=== PATIENT | female | born 1990 | race Caucasian/White ===

== ENCOUNTER 2020-01-24 20:31 | Inpatient (IN) | payer OTHER ==
[2020-01-24] MEDS ORDERED: Water For Irrigation,Sterile 1,000 ML Container IRR PRN (20:58)
[2020-01-24] MEDS ORDERED: Misoprostol 200 MCG Tab PO PRN (20:58)
[2020-01-24] MEDS ORDERED: Nalbuphine 10 MG/1 ML Vial IVPUSH PRN (20:58)
[2020-01-24] MEDS ORDERED: Methylergonovine 0.2 MG/1 ML Amp IM PRN (20:58)
[2020-01-24] MEDS ORDERED: Carboprost Tromethamine 250 MCG/1 ML Amp IM PRN (20:58)
[2020-01-24] MEDS ORDERED: Tranexamic Acid 1,000 MG in Sodium Chloride 0.9% 100 ML IV PRN (20:58)
[2020-01-24] MEDS ORDERED: Sodium Chloride 0.9% 10 ML SDV IV PRN (20:58)
[2020-01-24] MEDS ORDERED: Sodium Chloride 0.9% 2.5 ML Syringe FLUSH PRN (20:58)
[2020-01-24] MEDS ORDERED: Lidocaine 1% 50 ML MDV INJECT PRN (20:58)
[2020-01-24] MEDS ORDERED: Sodium Chloride 0.9% 10 ML Syringe FLUSH PRN (20:58)
[2020-01-24] MEDS ORDERED: Butorphanol 1 MG/ML SDV IVPUSH PRN (20:58)
[2020-01-24] MEDS ORDERED: Oxytocin/0.9 % Sodium Chloride 30 UNIT/500 ML BAG IV SCH (21:00)
[2020-01-24] MEDS: Lactated Ringers 1,000 ML IV SCH ×2 (21:25→22:03)
[2020-01-24] MEDS ORDERED: fentaNYL 100 MCG/2 ML SDV ONE (21:43)
[2020-01-24] MEDS ORDERED: Ropivacaine HCl/PF 100 ML ONE (21:43)
[2020-01-24 21:54] LABS: BLOOD UREA NITROGEN,BUN 11 mg/dL (7.0-18.0); CARBON DIOXIDE,CO2 22.4 mmol/L (21.0-32.0); CHLORIDE,CL 101 mmol/L (98-107); GLUCOSE RANDOM 122 mg/dL (74-106); SODIUM,NA 137 mmol/L (136-145)
--- NOTE | 2020-01-24 22:02 | PCM.PREANE ---
Preanesthetic Assessment - Anesthesia/Transfusion/Family Hx Anesthesia History: No Prior Anesthesia Family History of Anesthesia Reaction: No - Physical Assessment NPO Status Date: 01/24/20 NPO Status Time: 18:00 Height: 1.63 m Weight: 79.379 kg ASA Class: 1 - Lab Values: Laboratory Last Values WBC 15.10 K/uL (4.0-11.0) H 01/24/20 21:15 RBC 3.92 M/uL (4.30-5.90) L 01/24/20 21:15 Hgb 12.5 g/dL (12.0-16.0) 01/24/20 21:15 Hct 36.9 % (36.0-46.0) 01/24/20 21:15 MCV 94.1 fL (80.0-98.0) 01/24/20 21:15 MCH 31.9 pg (27.0-32.0) 01/24/20 21:15 MCHC 33.9 g/dL (31.0-37.0) 01/24/20 21:15 RDW Std Deviation 43.3 fl (28.0-62.0) 01/24/20 21:15 RDW Coeff of Donovan 13 % (11.0-15.0) 01/24/20 21:15 Plt Count 258 K/uL (150-400) 01/24/20 21:15 MPV 10.60 fL (7.40-12.00) 01/24/20 21:15 Nucleated RBC % 0.0 /100WBC 01/24/20 21:15 Nucleated RBCs # 0 K/uL 01/24/20 21:15 Urine Color YELLOW 01/24/20 20:35 Urine Appearance CLEAR 01/24/20 20:35 Urine pH 6.5 (5.0-8.0) 01/24/20 20:35 Ur Specific [place] 1.010 (1.001-1.035) 01/24/20 20:35 Urine Protein NEGATIVE mg/dL (NEGATIVE) 01/24/20 20:35 Urine Glucose (UA) NEGATIVE mg/dL (NEGATIVE) 01/24/20 20:35 Urine Ketones NEGATIVE mg/dL (NEGATIVE) 01/24/20 20:35 Urine Occult Blood TRACE-INTACT (NEGATIVE) H 01/24/20 20:35 Urine Nitrite NEGATIVE (NEGATIVE) 01/24/20 20:35 Urine Bilirubin NEGATIVE (NEGATIVE) 01/24/20 20:35 Urine Urobilinogen 0.2 EU/dL (<2.0) 01/24/20 20:35 Ur Leukocyte Esterase NEGATIVE (NEGATIVE) 01/24/20 20:35 - Allergies Allergies/Adverse Reactions: Allergies Allergy/AdvReac Type Severity Reaction Status Date / Time cefaclor [From Ceclor] Allergy Rash Verified 01/22/20 02:43 - Acknowledgements Anesthesia Type Planned: Epidural Pt an Appropriate Candidate for the Planned Anesthesia: Yes Alternatives and Risks of Anesthesia Discussed w Pt/Guardian: Yes Pt/Guardian Understands and Agrees with Anesthesia Plan: Yes PreAnesthesia Questionnaire - CURRENT (IN HOUSE) MEDS Current Meds: Current Medications Butorphanol Tartrate (Stadol) 1 mg IVPUSH Q1H PRN PRN Reason: Pain Carboprost Tromethamine (Hemabate Ds) 250 mcg IM ASDIRECTED PRN PRN Reason: Post Hemorrhage Lactated Ringer's (Ringers, Lactated) 1,000 mls @ 150 mls/hr IV ASDIRECTED [facility] Last Admin: 01/24/20 21:25 Dose: 999 mls/hr Oxytocin/Sodium Chloride (Oxytocin 30 Unit/500 Ml-Ns) 30 unit in 500 mls @ 500 mls/hr IV TITRATE [facility] Tranexamic Acid 1,000 mg/ (Sodium Chloride) 110 mls @ 660 mls/hr IV ONETIME PRN PRN Reason: Bleeding Lidocaine HCl (Xylocaine 1%) 50 ml INJECT ONETIME PRN PRN Reason: Laceration repair Methylergonovine Maleate (Methergine) 0.2 mg IM ASDIRECTED PRN PRN Reason: Post Hemorrhage Misoprostol (Cytotec) 200 mcg PO ONETIME PRN PRN Reason: Post Hemorrhage Nalbuphine HCl (Nubain) 10 mg IVPUSH Q1H PRN PRN Reason: Pain (severe 7-10) Sodium Chloride (Saline Flush) 10 ml FLUSH ASDIRECTED PRN PRN Reason: Keep Vein Open Sodium Chloride (Saline Flush) 2.5 ml FLUSH ASDIRECTED PRN PRN Reason: Keep Vein Open Sodium Chloride (Normal Saline) 10 ml IV ASDIRECTED PRN PRN Reason: IV Use Sterile Water (Sterile Water For Irrigation) 1,000 ml IRR ASDIRECTED PRN PRN Reason: delivery Discontinued Medications Fentanyl (Sublimaze) Confirm Administered Dose 100 mcg .ROUTE .STK-MED ONE Stop: 01/24/20 21:44 Ropivacaine (Naropin 0.2%) Confirm Administered Dose 100 mls @ as directed .ROUTE .STK-MED ONE Stop: 01/24/20 21:44
--- NOTE | 2020-01-24 22:05 | PCM.PRNOTE ---
- Free Text/Narrative Note: Anes NOte Patietn requests epidural for L&D. Sitting position, level L3-L4 midline approach. Sterile technique, chloraprep scrub to lumbar area.Steril fenestrated drape applied. Epidural space easily achieved single attempt uisng YVON technique. YVON at 3 cm. Cath threaded 5 cm with ease. Cath secured at skin at 9 cm using sterile clear adhesive dressing. [id number] 3 cc 1.5% lido with epi negative. 214 Load 10 cc 0.2% ropiv with 1 mcg cc fentanyl in slow divided doses. 2146 PUmp started wtih 90 cc same solution. Rate is 8 cc hr with 6 cc q 20 min prn bolus. Rula well. Time with patient [id number] Brayan Mejia CRNA
[2020-01-25] MEDS ORDERED: Terbutaline 1 MG/ML SDV SUBCUT PRN (00:57)
[2020-01-25] MEDS ORDERED: Oxytocin/0.9 % Sodium Chloride 30 UNIT/500 ML BAG IV SCH (01:00)
[2020-01-25] MEDS ORDERED: Acetaminophen 500 MG Tab PO PRN (07:19)
[2020-01-25] MEDS ORDERED: oxyCODONE 5 MG Tab PO PRN (07:19)
[2020-01-25] MEDS ORDERED: Lanolin 100% Cream 7 GM Tube TOP PRN (07:19)
[2020-01-25] MEDS ORDERED: Benzocaine/Menthol 20%-0.5% Spray 78 GM Cannister TOP PRN (07:19)
[2020-01-25] MEDS ORDERED: Witch Hazel Medicated Pads 40/Jar TOP PRN (07:19)
[2020-01-25] MEDS ORDERED: Ibuprofen 400 MG Tab PO PRN (07:19)
[2020-01-25] MEDS ORDERED: Docusate Sodium 100 MG Cap PO PRN (07:19)
[2020-01-25] MEDS ORDERED: Bisacodyl 10 MG Supp RECTAL PRN (07:19)
--- NOTE | 2020-01-25 07:26 | PCM.DEL ---
L & D Note - General Info Date of Service: 01/25/20 - Delivery Note Labor: Spontaneous Cervical Ripening Method: Oxytocin Delivery Outcome: Livebirth Presentation: Right Occiput Anterior (ELENI) Nuchal Cord: Present Anesthesia Type: Epidural Amniotic Fluid Description: Clear Episiotomy Type: None Laceration: 2nd Degree Suture type: Other (monocryl) Suture size: 2-0 Placenta: Spontaneous Cord: 3 Vessels Estimated Blood Loss: 300 Resuscitation Needed: No Score 1 min: 8 Score 5 min: 8 Delivery Comments (Free Text/Narrative):: Live male delivered a 559am 8/8 , weight 3970g - General Info Date of Service: 01/25/20 - Patient Data Weight - Most Recent: 79.379 kg Lab Results Last 24 Hours: Laboratory Results - last 24 hr 01/24/20 01/24/20 01/24/20 Range/Units 20:35 21:15 21:15 WBC 15.10 H (4.0-11.0) K/uL RBC 3.92 L (4.30-5.90) M/uL Hgb 12.5 (12.0-16.0) g/dL Hct 36.9 (36.0-46.0) % MCV 94.1 (80.0-98.0) fL MCH 31.9 (27.0-32.0) pg MCHC 33.9 (31.0-37.0) g/dL RDW Std Deviation 43.3 (28.0-62.0) fl RDW Coeff of Donovan 13 (11.0-15.0) % Plt Count 258 (150-400) K/uL MPV 10.60 (7.40-12.00) fL Nucleated RBC % 0.0 /100WBC Nucleated RBCs # 0 K/uL Sodium 137 (136-145) mmol/L Potassium 4.0 (3.5-5.1) mmol/L Chloride 101 (98-107) mmol/L Carbon Dioxide 22.4 (21.0-32.0) mmol/L BUN 11 (7.0-18.0) mg/dL Creatinine 0.7 (0.6-1.0) mg/dL Est Cr Clr Drug Dosing 104.24 mL/min Estimated GFR (MDRD) > 60.0 ml/min Glucose 122 H (74-106) mg/dL Calcium 8.9 (8.5-10.1) mg/dL Total Bilirubin 0.3 (0.2-1.0) mg/dL AST 17 (15-37) IU/L ALT 17 (14-63) IU/L Alkaline Phosphatase 144 H (46-116) U/L Total Protein 6.6 (6.4-8.2) g/dL Albumin 3.0 L (3.4-5.0) g/dL Globulin 3.6 (2.6-4.0) g/dL Albumin/Globulin Ratio 0.8 L (0.9-1.6) Urine Color YELLOW Urine Appearance CLEAR Urine pH 6.5 (5.0-8.0) Ur Specific [place] 1.010 (1.001-1.035) Urine Protein NEGATIVE (NEGATIVE) mg/dL Urine Glucose (UA) NEGATIVE (NEGATIVE) mg/dL Urine Ketones NEGATIVE (NEGATIVE) mg/dL Urine Occult Blood TRACE-INTACT H (NEGATIVE) Urine Nitrite NEGATIVE (NEGATIVE) Urine Bilirubin NEGATIVE (NEGATIVE) Urine Urobilinogen 0.2 (<2.0) EU/dL Ur Leukocyte Esterase NEGATIVE (NEGATIVE) Blood Type Antibody Screen 01/24/20 Range/Units 21:15 WBC (4.0-11.0) K/uL RBC (4.30-5.90) M/uL Hgb (12.0-16.0) g/dL Hct (36.0-46.0) % MCV (80.0-98.0) fL MCH (27.0-32.0) pg MCHC (31.0-37.0) g/dL RDW Std Deviation (28.0-62.0) fl RDW Coeff of Donovan (11.0-15.0) % Plt Count (150-400) K/uL MPV (7.40-12.00) fL Nucleated RBC % /100WBC Nucleated RBCs # K/uL Sodium (136-145) mmol/L Potassium (3.5-5.1) mmol/L Chloride (98-107) mmol/L Carbon Dioxide (21.0-32.0) mmol/L BUN (7.0-18.0) mg/dL Creatinine (0.6-1.0) mg/dL Est Cr Clr Drug Dosing mL/min Estimated GFR (MDRD) ml/min Glucose (74-106) mg/dL Calcium (8.5-10.1) mg/dL Total Bilirubin (0.2-1.0) mg/dL AST (15-37) IU/L ALT (14-63) IU/L Alkaline Phosphatase (46-116) U/L Total Protein (6.4-8.2) g/dL Albumin (3.4-5.0) g/dL Globulin (2.6-4.0) g/dL Albumin/Globulin Ratio (0.9-1.6) Urine Color Urine Appearance Urine pH (5.0-8.0) Ur Specific [place] (1.001-1.035) Urine Protein (NEGATIVE) mg/dL Urine Glucose (UA) (NEGATIVE) mg/dL Urine Ketones (NEGATIVE) mg/dL Urine Occult Blood (NEGATIVE) Urine Nitrite (NEGATIVE) Urine Bilirubin (NEGATIVE) Urine Urobilinogen (<2.0) EU/dL Ur Leukocyte Esterase (NEGATIVE) Blood Type O NEGATIVE Antibody Screen NEGATIVE Med Orders - Current: Current Medications Carboprost Tromethamine (Hemabate Ds) 250 mcg IM ASDIRECTED PRN PRN Reason: Post Hemorrhage Lactated Ringer's (Ringers, Lactated) 1,000 mls @ 150 mls/hr IV ASDIRECTED TOÑ[facility] Last Admin: 01/24/20 22:03 Dose: 150 mls/hr Oxytocin/Sodium Chloride (Oxytocin 30 Unit/500 Ml-Ns) 30 unit in 500 mls @ 500 mls/hr IV TITRATE [facility] Tranexamic Acid 1,000 mg/ (Sodium Chloride) 110 mls @ 660 mls/hr IV ONETIME PRN PRN Reason: Bleeding Oxytocin/Sodium Chloride (Oxytocin 30 Unit/500 Ml-Ns) 30 unit in 500 mls @ 2 mls/hr IV TITRATE [facility]; Protocol Last Titration: 01/25/20 02:37 Dose: 4 munits/min, 4 mls/hr Lidocaine HCl (Xylocaine 1%) 50 ml INJECT ONETIME PRN PRN Reason: Laceration repair Methylergonovine Maleate (Methergine) 0.2 mg IM ASDIRECTED PRN PRN Reason: Post Hemorrhage Misoprostol (Cytotec) 200 mcg PO ONETIME PRN PRN Reason: Post Hemorrhage Sodium Chloride (Saline Flush) 10 ml FLUSH ASDIRECTED PRN PRN Reason: Keep Vein Open Sodium Chloride (Saline Flush) 2.5 ml FLUSH ASDIRECTED PRN PRN Reason: Keep Vein Open Sodium Chloride (Normal Saline) 10 ml IV ASDIRECTED PRN PRN Reason: IV Use Sterile Water (Sterile Water For Irrigation) 1,000 ml IRR ASDIRECTED PRN PRN Reason: delivery Discontinued Medications Butorphanol Tartrate (Stadol) 1 mg IVPUSH Q1H PRN PRN Reason: Pain Fentanyl (Sublimaze) Confirm Administered Dose 100 mcg .ROUTE .STK-MED ONE Stop: 01/24/20 21:44 Ropivacaine (Naropin 0.2%) Confirm Administered Dose 100 mls @ as directed .ROUTE .STK-MED ONE Stop: 01/24/20 21:44 Nalbuphine HCl (Nubain) 10 mg IVPUSH Q1H PRN PRN Reason: Pain (severe 7-10) Terbutaline Sulfate (Brethine) 0.25 mg SUBCUT ASDIRECTED PRN PRN Reason: Tacysystole - Problem List & Annotations (1) Vaginal delivery SNOMED Code(s): 760517901 Code(s): O80 - ENCOUNTER FOR FULL-TERM UNCOMPLICATED DELIVERY Status: Acute Current Visit: Yes - Problem List Review Problem List Initiated/Reviewed/Updated: Yes - My Orders Last 24 Hours: My Active Orders 01/24/20 20:58 Patient Status [ADT] Routine Heart Tones [RC] CONTINUOUS Non Stress Test [RC] PER UNIT ROUTINE May Shower [RC] ASDIRECTED Notify Provider [RC] PRN Up ad Renay [RC] ASDIRECTED Vaginal Exam [RC] PRN Vital Signs [RC] PER UNIT ROUTINE Carboprost Tromethamine [Hemabate DS] 250 mcg IM ASDIRECTED PRN Lidocaine 1% [Xylocaine 1%] 50 ml INJECT ONETIME PRN Methylergonovine [Methergine] 0.2 mg IM ASDIRECTED PRN Sodium Chloride 0.9% [Normal Saline] 10 ml IV ASDIRECTED PRN Sodium Chloride 0.9% [Saline Flush] 10 ml FLUSH ASDIRECTED PRN Sodium Chloride 0.9% [Saline Flush] 2.5 ml FLUSH ASDIRECTED PRN Tranexamic Acid [Cyklokapron] 1,000 mg Sodium Chloride 0.9% [Normal Saline] 100 ml IV ONETIME Water For Irrigation,Sterile [Sterile Water for Irrigation] 1,000 ml IRR ASDIRECTED PRN miSOPROStoL [Cytotec] 200 mcg PO ONETIME PRN Peripheral IV Insertion Adult [OM.PC] Routine 01/24/20 21:00 Lactated Ringers [Ringers, Lactated] 1,000 ml IV ASDIRECTED Oxytocin/0.9 % Sodium Chloride [Oxytocin 30 Unit/500 ML-NS] 30 unit in 500 ml IV TITRATE 01/24/20 21:15 RPR (SYPHILIS SERO) W/ RFLX [REF] Routine 01/25/20 00:57 Bedrest Bathroom Privileges [RC] ASDIRECTED Communication Order [RC] ASDIRECTED Communication Order [RC] ASDIRECTED Notify Provider [RC] PRN Vaginal Exam [RC] PRN Vital Signs [RC] PER UNIT ROUTINE 01/25/20 01:00 Oxytocin/0.9 % Sodium Chloride [Oxytocin 30 Unit/500 ML-NS] 30 unit in 500 ml IV TITRATE Medication Administration Instruction [OM.PC] Q3H 01/25/20 07:19 BLOOD GAS ARTERIAL UMBILICAL [BG] Stat BLOOD GAS VENOUS UMBILICAL [BG] Stat RHIG WORKUP, [BBK] Routine Acetaminophen [Tylenol Extra Strength] 1,000 mg PO Q4H PRN Acetaminophen [Tylenol Extra Strength] 500 mg PO Q4H PRN Benzocaine/Menthol [Dermoplast Pain Relief 20%-0.5% [place]] 78 gm TOP ASDIRECTED PRN Docusate Sodium [Colace] 100 mg PO BID PRN Ibuprofen [Motrin] 400 mg PO Q4H PRN Ibuprofen [Motrin] 800 mg PO Q6H PRN Lanolin [Lansinoh HPA] See Dose Instructions TOP ASDIRECTED PRN bisacodyL [Dulcolax] 10 mg RECTAL ONETIME PRN oxyCODONE 5 mg PO Q2H PRN witch [place] [Tucks] 1 pad TOP ASDIRECTED PRN Resuscitation Status Routine 01/25/20 07:20 Patient Status [ADT] Routine May Shower [RC] ASDIRECTED Up ad Renay [RC] ASDIRECTED Vital Signs [RC] PER UNIT ROUTINE Assess Lochia [WOMSER] Per Unit Routine Assess Uterine Involution [WOMSER] Per Unit Routine Peripheral IV Discontinue [OM.PC] Routine 01/26/20 05:11 HEMOGLOBIN/HEMATOCRIT,HH [HEME] Timed
[2020-01-25] MEDS: Ibuprofen 800 MG Tab PO PRN ×2 (08:20→19:59)
--- NOTE | 2020-01-25 08:27 | OR ---
SURGEON: LAURA THOMPSON DATE OF PROCEDURE: 01/25/2020 PREOPERATIVE DIAGNOSES: A 29-year-old G1, P0, at 39 weeks 3 days, admitted in early labor, Rh negative, GBS negative, unilateral polycystic kidney, elevated blood pressures. POSTOPERATIVE DIAGNOSES: A 29-year-old G1, P0, at 39 weeks 3 days, admitted in early labor, Rh negative, GBS negative, unilateral polycystic kidney, elevated blood pressures. PROCEDURES: Normal spontaneous vaginal delivery and repair of second-degree vaginal laceration. ANESTHESIA: Epidural. ESTIMATED BLOOD LOSS: 300. NOTES AND FINDING: Live male , delivered at 5:59 a.m. score is 8 and 8. Weight is 3970 g. BRIEF HISTORY ABOUT THE PATIENT: She is a 29-year-old G1, P0, at 39 weeks 3 days, who came in complaining of contractions. When she was examined, she was noted to be 3 cm dilated. She was having irregular contractions every 3 to 5 minutes. Her blood pressures were noted to be 130s to 150s/90s. She denied headache or blurry vision. PIH labs were done, which were normal. She was examined, and she was noted to be about 3 cm dilated. She was in a lot of pain. She was requesting epidural, which she got, after which she made change, but then was started on Pitocin and she had a normal labor curve and she became fully dilated. PROCEDURE IN DETAIL: With the patient being fully dilated, she was encouraged to push. With good pushing effort, she delivered the head. There was a nuchal cord that was reduced, followed subsequently by the anterior and posterior shoulder delivery. was placed on maternal abdomen. Delayed cord clamping was observed. Then, the placenta was delivered via controlled cord traction. Then, perineum was inspected, noted to have a second-degree laceration which was repaired in layer without any difficulty. Bimanual massage was then done. Uterus was noted to be firm. Pitocin was running. All instruments and pad counts were correct x2. The patient was left in Labor and Delivery room in stable condition. DERRELL WAGNER /[id number] CHRISTOFER
[2020-01-25] MEDS: Acetaminophen 500 MG Tab PO PRN (16:43)
[2020-01-26] MEDS: Acetaminophen 500 MG Tab PO PRN (02:16)
--- NOTE | 2020-01-26 07:17 | PCM48HPAN ---
Post Anesthesia Note - EVALUATION WITHIN 48HRS OF ANESTHETIC Vital Signs in Normal Range: Yes Patient Participated in Evaluation: Yes Respiratory Function Stable: Yes Airway Patent: Yes Cardiovascular Function Stable: Yes Hydration Status Stable: Yes Pain Control Satisfactory: Yes Nausea and Vomiting Control Satisfactory: Yes Mental Status Recovered: Yes Vital Signs: Last Vital Signs Temp 36.5 C 01/26/20 05:46 Pulse 71 01/26/20 05:46 Resp 14 01/26/20 05:46 BP 131/81 01/26/20 05:46 Pulse Ox 97 01/26/20 05:46
[2020-01-26] MEDS: Ibuprofen 800 MG Tab PO PRN (07:37)
--- NOTE | 2020-01-26 08:32 | PCM.PNPP ---
- General Info Date of Service: 01/26/20 Functional Status: Reports: Pain Controlled, Tolerating Diet, Ambulating, Urinating - Review of Systems General: Reports: No Symptoms HEENT: Reports: No Symptoms Pulmonary: Reports: No Symptoms Cardiovascular: Reports: No Symptoms Gastrointestinal: Reports: No Symptoms Genitourinary: Reports: No Symptoms Musculoskeletal: Reports: No Symptoms Skin: Reports: No Symptoms Neurological: Reports: No Symptoms Psychiatric: Reports: No Symptoms - General Info Date of Service: 01/26/20 - Patient Data Vital Signs - Most Recent: Last Vital Signs Temp 35.9 C L 01/26/20 08:00 Pulse 96 01/26/20 08:00 Resp 18 01/26/20 08:00 BP 120/77 01/26/20 08:00 Pulse Ox 98 01/26/20 08:00 Weight - Most Recent: 79.379 kg Lab Results - Last 24 Hours: Laboratory Results - last 24 hr 01/26/20 Range/Units 05:10 Hgb 10.5 L (12.0-16.0) g/dL Hct 32.0 L (36.0-46.0) % Med Orders - Current: Current Medications Acetaminophen (Tylenol Extra Strength) 500 mg PO Q4H PRN PRN Reason: Pain Acetaminophen (Tylenol Extra Strength) 1,000 mg PO Q4H PRN PRN Reason: Pain Last Admin: 01/26/20 02:16 Dose: 1,000 mg Benzocaine/Menthol (Dermoplast Pain Relief 20%-0.5% [place]) 78 gm TOP ASDIRECTED PRN PRN Reason: Perineal Comfort Measure Last Admin: 01/25/20 08:21 Dose: 1 can Bisacodyl (Dulcolax) 10 mg RECTAL ONETIME PRN PRN Reason: Constipation Carboprost Tromethamine (Hemabate Ds) 250 mcg IM ASDIRECTED PRN PRN Reason: Post Hemorrhage Docusate Sodium (Colace) 100 mg PO BID PRN PRN Reason: Constipation Emollient Ointment (Lansinoh Hpa) 0 gm TOP ASDIRECTED PRN PRN Reason: Sore Nipples Last Admin: 01/25/20 08:21 Dose: 1 tube Lactated Ringer's (Ringers, Lactated) 1,000 mls @ 150 mls/hr IV ASDIRECTED TOÑA Last Admin: 01/24/20 22:03 Dose: 150 mls/hr Oxytocin/Sodium Chloride (Oxytocin 30 Unit/500 Ml-Ns) 30 unit in 500 mls @ 500 mls/hr IV TITRATE TOÑA Tranexamic Acid 1,000 mg/ (Sodium Chloride) 110 mls @ 660 mls/hr IV ONETIME PRN PRN Reason: Bleeding Oxytocin/Sodium Chloride (Oxytocin 30 Unit/500 Ml-Ns) 30 unit in 500 mls @ 2 mls/hr IV TITRATE [facility]; Protocol Last Titration: 01/25/20 02:37 Dose: 4 munits/min, 4 mls/hr Ibuprofen (Motrin) 400 mg PO Q4H PRN PRN Reason: Pain Ibuprofen (Motrin) 800 mg PO Q6H PRN PRN Reason: Pain Last Admin: 01/26/20 07:37 Dose: 800 mg Lidocaine HCl (Xylocaine 1%) 50 ml INJECT ONETIME PRN PRN Reason: Laceration repair Methylergonovine Maleate (Methergine) 0.2 mg IM ASDIRECTED PRN PRN Reason: Post Hemorrhage Misoprostol (Cytotec) 200 mcg PO ONETIME PRN PRN Reason: Post Hemorrhage Oxycodone HCl (Oxycodone) 5 mg PO Q2H PRN PRN Reason: Pain Sodium Chloride (Saline Flush) 10 ml FLUSH ASDIRECTED PRN PRN Reason: Keep Vein Open Sodium Chloride (Saline Flush) 2.5 ml FLUSH ASDIRECTED PRN PRN Reason: Keep Vein Open Sodium Chloride (Normal Saline) 10 ml IV ASDIRECTED PRN PRN Reason: IV Use Sterile Water (Sterile Water For Irrigation) 1,000 ml IRR ASDIRECTED PRN PRN Reason: delivery Witch Amy (Tucks) 1 pad TOP ASDIRECTED PRN PRN Reason: comfort care Last Admin: 01/25/20 08:21 Dose: 1 tub Discontinued Medications Butorphanol Tartrate (Stadol) 1 mg IVPUSH Q1H PRN PRN Reason: Pain Fentanyl (Sublimaze) Confirm Administered Dose 100 mcg .ROUTE .STK-MED ONE Stop: 01/24/20 21:44 Ropivacaine (Naropin 0.2%) Confirm Administered Dose 100 mls @ as directed .ROUTE .STK-MED ONE Stop: 01/24/20 21:44 Nalbuphine HCl (Nubain) 10 mg IVPUSH Q1H PRN PRN Reason: Pain (severe 7-10) Terbutaline Sulfate (Brethine) 0.25 mg SUBCUT ASDIRECTED PRN PRN Reason: Tacysystole - Infant Interaction Disposition, : Baby in [place] stable, on Nasal canula Feeding: Other (see below) (trying to pump, for colostrum but was not planning on breast feeding. ) Support Person: - Recovery Exam Fundal Tone: Firm Fundal Level: 1 Fingerbreadths Below Umbilicus Fundal Placement: Midline Lochia Amount: Small Lochia Color: Rubra/Red Perineum Description: Ecchymotic Episiotomy/Laceration: Approximated Bladder Status: Nonpalpable Urinary Elimination: Voided - Exam Lungs: Normal Respiratory Effort GI/Abdominal Exam: Soft, Non-Tender, No Distention Extremities: Normal Range of Motion, No Pedal Edema, Normal Capillary Refill Skin: Warm, Dry, Intact Psy/Mental Status: Alert, Normal Affect, Normal Mood - Problem List & Annotations (1) Vaginal delivery SNOMED Code(s): 760172139 Code(s): O80 - ENCOUNTER FOR FULL-TERM UNCOMPLICATED DELIVERY Status: Acute Current Visit: Yes - Problem List Review Problem List Initiated/Reviewed/Updated: Yes - My Orders Last 24 Hours: My Active Orders 01/26/20 08:28 Ready for Discharge [RC] PER UNIT ROUTINE - Assessment Assessment:: PPD#1 after stable, minimal lochia, minimal pain, would like to be discharged - Plan Plan:: Dismiss to home. Discharge instructions reviewed.
== END 2020-01-26 10:12 | disposition home or self-care (01) | DRG 806 ==
LOC: MW.OBCHECK 20:31 → MW.OB 20:31 → MW.OBCHECK 20:58 → OBSVTOIN 01-25 05:59 → MW.OB 01-25 09:55
PROVIDERS: ADMIT Obstetrics & Gynecology; ATTEND Obstetrics & Gynecology
PROC: 10E0XZZ Delivery of Products of Conception, External Approach (ICD-10-PCS; principal; 2020-01-25)
PROC: 0KQM0ZZ Repair Perineum Muscle, Open Approach (ICD-10-PCS; 2020-01-25)
PROC: 3E033VJ Introduction of Other Hormone into Peripheral Vein, Percutaneous Approach (ICD-10-PCS; 2020-01-25)
PROC: 3E0R3BZ Introduction of Anesthetic Agent into Spinal Canal, Percutaneous Approach (ICD-10-PCS; 2020-01-25)
PROC: 00HU33Z Insertion of Infusion Device into Spinal Canal, Percutaneous Approach (ICD-10-PCS; 2020-01-25)
DX: O70.1 Second degree perineal laceration during delivery (principal); Q61.3 Polycystic kidney, unspecified; Z37.0 Single live birth; Z3A.39 39 weeks gestation of pregnancy; O99.89 Other specified diseases and conditions complicating pregnancy, childbirth and the puerperium
CPT/HCPCS: 36415; 51702; 59025; 59409; 80053; 81003; 82803; 85014; 85018; 85027; 86592; 86593; 86850; 86900; 86901; A9270-GY; J2590; J7120

== ENCOUNTER 2022-03-10 20:17 | Inpatient (IN) | payer OTHER ==
[2022-03-10] MEDS ORDERED: ePHEDrine 50 MG/ML SDV IVPUSH PRN ×2 (22:23)
[2022-03-10] MEDS ORDERED: Ropivacaine in NACL,ISO-OSM/PF 800 MG in Premix Bag 1 BAG EPIDUR SCH ×2 (22:30)
[2022-03-10] MEDS: Lactated Ringers 1,000 ML IV SCH ×2 (22:55→23:38)
[2022-03-10] MEDS ORDERED: Butorphanol 1 MG/ML SDV IVPUSH PRN (23:03)
[2022-03-10] MEDS ORDERED: Carboprost Tromethamine 250 MCG/1 ML Amp IM PRN (23:03)
[2022-03-10] MEDS ORDERED: Ondansetron 4 MG/2 ML SDV IVPUSH PRN (23:03)
[2022-03-10] MEDS ORDERED: Methylergonovine 0.2 MG/1 ML Amp IM PRN (23:03)
[2022-03-10] MEDS ORDERED: Sodium Chloride 0.9% 10 ML Syringe FLUSH PRN (23:03)
[2022-03-10] MEDS ORDERED: Tranexamic Acid 1,000 MG in Sodium Chloride 0.9% 100 ML IV PRN (23:03)
[2022-03-10] MEDS ORDERED: Sodium Chloride 0.9% 2.5 ML Syringe FLUSH PRN (23:03)
[2022-03-10] MEDS ORDERED: Sodium Chloride 0.9% 20 ML SDV IV PRN (23:03)
[2022-03-10] MEDS ORDERED: Misoprostol 200 MCG Tab PO PRN (23:03)
[2022-03-10] MEDS ORDERED: Lidocaine 1% 50 ML MDV INJECT PRN (23:03)
[2022-03-10] MEDS ORDERED: Water For Irrigation,Sterile 1,000 ML Container IRR PRN (23:03)
[2022-03-10] MEDS ORDERED: Oxytocin/0.9 % Sodium Chloride 30 UNIT/500 ML BAG IV SCH (23:15)
[2022-03-10 23:51] LABS: BLOOD UREA NITROGEN,BUN 10 mg/dL (7.0-18.0); CARBON DIOXIDE,CO2 25.2 mmol/L (21.0-32.0); CHLORIDE,CL 104 mmol/L (98-107); GLUCOSE RANDOM 115 mg/dL (74-106); POTASSIUM,K 4.4 mmol/L (3.5-5.1); SODIUM,NA 138 mmol/L (136-145)
[2022-03-11] MEDS ORDERED: Oxytocin/0.9 % Sodium Chloride 30 UNIT/500 ML BAG IV SCH (01:00)
[2022-03-11] MEDS ORDERED: Aluminum Hydroxide/Magnesium Hydroxide/Simethicone XS Susp 30 ML Cup PO PRN (04:18)
[2022-03-11] MEDS ORDERED: Witch Hazel Medicated Pads 40/Jar TOP PRN (04:18)
[2022-03-11] MEDS ORDERED: Bisacodyl 10 MG Supp RECTAL PRN (04:18)
[2022-03-11] MEDS ORDERED: Docusate Sodium 100 MG Cap PO PRN (04:18)
[2022-03-11] MEDS ORDERED: Lanolin 100% Cream 7 GM Tube TOP PRN (04:18)
[2022-03-11] MEDS ORDERED: Ibuprofen 400 MG Tab PO PRN (04:18)
[2022-03-11] MEDS ORDERED: Benzocaine/Menthol 20%-0.5% Spray 78 GM Cannister TOP PRN (04:18)
[2022-03-11] MEDS ORDERED: Acetaminophen 500 MG Tab PO PRN (04:18)
[2022-03-11] MEDS ORDERED: oxyCODONE 5 MG Tab PO PRN (04:18)
[2022-03-11] MEDS: Acetaminophen 500 MG Tab PO PRN ×2 (06:14→17:43)
[2022-03-11] MEDS: Ibuprofen 800 MG Tab PO PRN ×2 (11:08→17:44)
[2022-03-12] MEDS: Ibuprofen 800 MG Tab PO PRN (01:27)
[2022-03-12] MEDS: Acetaminophen 500 MG Tab PO PRN ×2 (01:28→07:45)
== END 2022-03-12 11:24 | disposition home or self-care (01) | DRG 807 ==
LOC: MW.OB 20:17 → MW.OBCHECK 20:17 → MW.OB 03-11 00:34 → OBSVTOIN 03-11 03:57 → MW.OB 03-11 10:41
PROVIDERS: ADMIT Obstetrics & Gynecology; ATTEND Obstetrics & Gynecology
PROC: 10E0XZZ Delivery of Products of Conception, External Approach (ICD-10-PCS; principal; 2022-03-11)
PROC: 0KQM0ZZ Repair Perineum Muscle, Open Approach (ICD-10-PCS; 2022-03-11)
PROC: 00HU33Z Insertion of Infusion Device into Spinal Canal, Percutaneous Approach (ICD-10-PCS; 2022-03-11)
PROC: 3E0R3BZ Introduction of Anesthetic Agent into Spinal Canal, Percutaneous Approach (ICD-10-PCS; 2022-03-11)
DX: O70.1 Second degree perineal laceration during delivery (principal); Z37.0 Single live birth; Z3A.40 40 weeks gestation of pregnancy; Z20.822 Contact with and (suspected) exposure to COVID-19
CPT/HCPCS: 36415; 51702; 59025; 59409; 80053; 81003; 82803; 85014; 85018; 85027; 85460; 86592; 86850; 86900; 86901; A9270-GY; J2590; J2790; J7120; U0002

== ENCOUNTER 2025-02-11 05:10 | Inpatient (IN) | payer OTHER ==
[2025-02-11] MEDS ORDERED: Lidocaine 1% 50 ML MDV INJECT PRN (05:23)
[2025-02-11] MEDS ORDERED: Water For Irrigation,Sterile 1,000 ML Container IRR PRN (05:23)
[2025-02-11] MEDS ORDERED: Sodium Chloride 0.9% 2.5 ML Syringe FLUSH PRN (05:23)
[2025-02-11] MEDS ORDERED: Sodium Chloride 0.9% 20 ML SDV IV PRN (05:23)
[2025-02-11] MEDS ORDERED: Misoprostol 200 MCG Tab PO PRN (05:23)
[2025-02-11] MEDS ORDERED: Carboprost Tromethamine 250 MCG/1 mL Vial IM PRN (05:23)
[2025-02-11] MEDS ORDERED: Butorphanol 1 MG/ML SDV IVPUSH PRN (05:23)
[2025-02-11] MEDS ORDERED: Sodium Chloride 0.9% 10 ML Syringe FLUSH PRN (05:23)
[2025-02-11 05:41] LABS: HEMATOCRIT 33.2 % (37.0-47.0); HEMOGLOBIN 10.8 g/dL (12.0-16.0); MEAN CORPUSCULAR HEMOGLOBIN 27.6 pg (28.0-32.0); MEAN CORPUSCULAR HGB CONC 32.5 g/dL (32.0-36.0); MEAN CORPUSCULAR VOLUME 84.7 fL (83.0-99.0); MEAN PLATELET VOLUME 9.9 fL (9.4-12.3); PLATELET COUNT,PLT 251 K/uL (150-400); RED BLOOD CELL COUNT 3.92 M/uL (4.10-5.30); WHITE BLOOD CELL COUNT,WBC 9.54 K/uL (3.9-11.3)
[2025-02-11] MEDS ORDERED: Ropivacaine HCl/PF 200 ML ONE (05:48)
[2025-02-11] MEDS ORDERED: dexmedeTOMIDine HCl 200 MCG/2 ML SDV ONE (05:48)
[2025-02-11] MEDS ORDERED: Phenylephrine HCl In 0.9% NaCl 1 MG/10 ML Syringe ONE (05:48)
[2025-02-11] MEDS ORDERED: Bupivacaine 0.5% 30 ML SDV ONE (05:49)
[2025-02-11] MEDS ORDERED: Lidocaine 2% with EPINEPHrine 1:200,000 20 ML SDV ONE (05:49)
[2025-02-11] MEDS ORDERED: ePHEDrine 50 MG/ML SDV IVPUSH PRN (05:53)
[2025-02-11] MEDS ORDERED: Phenylephrine HCl In 0.9% NaCl 1 MG/10 ML Syringe IVPUSH PRN (05:53)
[2025-02-11] MEDS ORDERED: dexmedeTOMIDine HCl 200 MCG/2 ML SDV EPIDUR SCH (06:00)
[2025-02-11] MEDS: Ropivacaine HCl/PF 400 MG in Premix Bag 1 BAG EPIDUR SCH (06:35)
[2025-02-11] MEDS: Lactated Ringers 1,000 ML IV SCH (06:36)
[2025-02-11] MEDS: Oxytocin/0.9 % Sodium Chloride 30 UNIT/500 ML BAG IV SCH (06:57)
[2025-02-11] MEDS ORDERED: Benzocaine/Menthol 20%-0.5% Spray 78 GM Cannister TOP PRN (07:14)
[2025-02-11] MEDS ORDERED: Lanolin 100% Cream 7 GM Tube TOP PRN (07:14)
[2025-02-11] MEDS ORDERED: oxyCODONE 5 MG Tab PO PRN (07:14)
[2025-02-11 08:13] LABS: PH,UMBILICAL ARTERIAL 7.34 (7.18-7.38); PH,UMBILICAL VENOUS 7.33 (7.25-7.45)
[2025-02-11] MEDS: Methylergonovine 0.2 MG/1 ML Amp IM PRN (08:47)
[2025-02-11] MEDS: Acetaminophen 500 MG Tab PO PRN (09:09)
[2025-02-11 09:15] LABS: BASOPHILS ABSOLUTE AUTO 0.03 K/uL (0.00-0.20); BASOPHILS PERCENT AUTO 0.2 % (0.0-1.0); EOSINOPHILS ABSOLUTE AUTO 0.02 K/uL (0.00-0.45); EOSINOPHILS PERCENT AUTO 0.1 % (0.0-6.0); HEMATOCRIT 32.3 % (37.0-47.0); HEMOGLOBIN 10.4 g/dL (12.0-16.0); IMMATURE GRAN PERCENT AUTO 0.7 % (0.0-0.4); LYMPHOCYTES ABSOLUTE AUTO 1.61 K/uL (1.00-4.80); LYMPHOCYTES PERCENT AUTO 10.9 % (24.0-44.0); MEAN CORPUSCULAR HEMOGLOBIN 27.7 pg (28.0-32.0); MEAN CORPUSCULAR HGB CONC 32.2 g/dL (32.0-36.0); MEAN CORPUSCULAR VOLUME 85.9 fL (83.0-99.0); MEAN PLATELET VOLUME 10.1 fL (9.4-12.3); MONOCYTES ABSOLUTE AUTO 0.69 K/uL (0.00-0.80); MONOCYTES PERCENT AUTO 4.7 % (0.0-8.0); NEUTROPHILS ABSOLUTE AUTO 12.35 K/uL (1.80-7.70); NEUTROPHILS PERCENT AUTO 83.4 % (41.0-71.0); PLATELET COUNT,PLT 224 K/uL (150-400); RED BLOOD CELL COUNT 3.76 M/uL (4.10-5.30)
[2025-02-11] MEDS ORDERED: Tranexamic Acid in NACL,ISO-OS 100 ML ONE (09:37)
[2025-02-11] MEDS ORDERED: Calcium Chloride 10% 1 GM/10 ML Syringe IVPUSH ONE (09:38)
[2025-02-11 09:40] LABS: FIBRINOGEN 460 mg/dL (187-446); INR < 0.93 (0.86-1.11); PTT,PARTIAL THROMBOPLSTIN TIME 24.7 SEC (23.9-30.7)
[2025-02-11] MEDS: Tranexamic Acid in NACL,ISO-OS 1,000 MG in Premix Bag 1 BAG IV ONE (09:41)
[2025-02-11] MEDS: Calcium Gluc in NaCl, ISO-OSM 1,000 MG in Premix Bag 1 BAG IV ONE (10:06)
[2025-02-11] MEDS: Witch Hazel Medicated Pads 40/Jar TOP PRN (11:04)
[2025-02-11] MEDS: Ibuprofen 800 MG Tab PO PRN (15:27)
[2025-02-12 05:45] LABS: HEMATOCRIT 26.8 % (37.0-47.0); HEMOGLOBIN 8.9 g/dL (12.0-16.0)
[2025-02-12] MEDS: Docusate Sodium 100 MG Cap PO PRN (07:41)
[2025-02-12] MEDS: Sodium Ferric Gluconate Cmplex 125 MG in Sodium Chloride 0.9% 100 ML IV SCH (10:02)
== END 2025-02-12 14:18 | disposition home or self-care (01) | DRG 806 ==
LOC: MW.OBCHECK 05:10 → MW.OB 05:12 → MW.OBCHECK 05:22 → MW.OB 05:22 → OBSVTOIN 06:54 → MW.OB 11:48
PROVIDERS: ADMIT Obstetrics & Gynecology; ATTEND Obstetrics & Gynecology
PROC: 10E0XZZ Delivery of Products of Conception, External Approach (ICD-10-PCS; principal; 2025-02-11)
PROC: 3E0R3BZ Introduction of Anesthetic Agent into Spinal Canal, Percutaneous Approach (ICD-10-PCS; 2025-02-11)
PROC: 00HU33Z Insertion of Infusion Device into Spinal Canal, Percutaneous Approach (ICD-10-PCS; 2025-02-11)
DX: O48.0 Post-term pregnancy (principal); O72.1 Other immediate postpartum hemorrhage; Z37.0 Single live birth; O90.81 Anemia of the puerperium; O77.0 Labor and delivery complicated by meconium in amniotic fluid; D50.9 Iron deficiency anemia, unspecified; Z3A.41 41 weeks gestation of pregnancy
CPT/HCPCS: 36415; 51701; 59025; 59409; 82803; 85014; 85018; 85025; 85027; 85384; 85610; 85730; 86592; 86850; 86900; 86901; A9270-GY; J0613; J0665; J2210; J2371; J2590; J2795; J2916; J3490; J7120